=== PATIENT | female | born 1970 | race Two or more races ===

== ENCOUNTER 2020-03-22 05:59 | Day surgery (SDC) | payer OTHER ==
[2020-03-22] MEDS ORDERED: NEXIUM 24HR20 MG PO (08:21)
== END 2020-03-22 10:00 | disposition home or self-care (01) ==
LOC: AMB-ENDOS 05:59
PROVIDERS: ATTEND Surgery
DX: D13.1 Benign neoplasm of stomach (principal); Z20.828 Contact with and (suspected) exposure to other viral communicable diseases; K44.9 Diaphragmatic hernia without obstruction or gangrene